=== PATIENT | female | born 1960 | race Caucasian/White ===

== ENCOUNTER 2016-10-15 15:35 | Emergency (ER) | payer MEDICAID ==
[2016-10-15] MEDS ORDERED: ALBUTEROL NEB 2.5 MG/3 ML INH STA (16:57)
[2016-10-15] MEDS ORDERED: ALBUTEROL NEB 2.5 MG/3 ML INH ONE (17:18)
[2016-10-15] MEDS ORDERED: AZITHROMYCIN 250 MG TABLET PO STA (17:39)
[2016-10-15] MEDS ORDERED: AZITHROMYCIN 250 MG TABLET PO ONE (17:42)
== END 2016-10-15 17:50 | disposition home or self-care (01) ==
DX: J18.9 Pneumonia, unspecified organism (principal); I10 Essential (primary) hypertension; E11.9 Type 2 diabetes mellitus without complications; Z79.84 Long term (current) use of oral hypoglycemic drugs
CPT/HCPCS: 71020; 94640; 94664; 99283; 99284; A9270; J7613

== ENCOUNTER 2020-08-15 02:21 | Emergency (ER) | payer OTHER ==
[2020-08-15] MEDS ORDERED: HYDROcod/ACET 5/325 Prepack 4 PO STA (03:18)
[2020-08-15] MEDS ORDERED: lisinopriL 5 MG TABLET PO STA (04:00)
[2020-08-15 04:13] VITALS: BP 207/99
--- NOTE | 2020-08-15 04:36 | ED Physician Documentation ---
History of Present Illness - Stated complaint Stated Complaint: ARM PX - Chief complaint Chief Complaint: Ext Problem - History obtained from History obtained from: Patient - History of Present Illness Timing: How many weeks ago (4) Pain level max: 6 Pain level now: 3 Improved by: rest Worsened by: movement (flexion at elbow), palpation/pressure to flexor surface of elbow - Additonal information Additional information: c/o gradual onset RUE pain x 4 weeks, initially in right hand and wrist but limited to medial aspect (4th and 5th digits, medial hand/wrist), but eventually spreading to involve FA, elbow, and right upper arm. pain is episodic and is exacerbated by palpation/pressure to the elbow (flexor aspect), and to a lesser extent with elbow flexion. denies injury (although distant/childhood RUE fracture). patient is right-hand dominant Review of Systems Constitutional: denies: Fever Musculoskeletal: reports: Extremity pain. denies: Neck pain, Back pain, Extremity swelling, Joint swelling Neurologic: reports: Numbness (mild paresthesias RUE medial aspect and 4th and 5th right fingers). denies: Focal weakness PD PAST MEDICAL HISTORY - Past Medical History Cardiovascular: Hypertension Respiratory: None Endocrine/Autoimmune: Type 2 diabetes, HyPOthyroidism GI: None POULTRYMAN: None : None HEENT: None Psych: Depression Musculoskeletal: None Derm: None - Past Surgical History Past Surgical History: Yes General: Appendectomy /POULTRYMAN: section - Present Medications Home Medications: Ambulatory Orders Medication Instructions Recorded Confirmed metFORMIN [Glucophage] 1,000 mg PO BID 10/18/15 07/26/20 Lisinopril [Prinivil] 10 mg PO DAILY 07/26/20 07/26/20 HYDROcod/ACETAM 5/325 [Throckmorton 5/325] 1 - 2 ea PO Q6H PRN #15 tablet 08/15/20 lisinopriL [Lisinopril] 10 mg PO DAILY #30 tablet 08/15/20 - Allergies Allergies/Adverse Reactions: Allergies Allergy/AdvReac Type Severity Reaction Status Date / Time codeine AdvReac Nausea Verified 08/15/20 02:38 - Social History Does the pt smoke?: No Smoking Status: Never smoker Does the pt drink ETOH?: No Does the pt have substance abuse?: No - Immunizations Immunizations are current?: No Immunizations: TDAP >10years/unknown PD ED PE NORMAL - Vitals Vital signs reviewed: Yes - General General: Alert and oriented X 3, No acute distress, Well developed/nourished - Neck Neck: No bony TTP - Cardiac Cardiac: RRR, No murmur - Respiratory Respiratory: No respiratory distress, Clear bilaterally - Derm Derm: Normal color, Warm and dry, No rash - Extremities Extremities: No deformity, Normal ROM s pain, No edema, Other (brisk capillary refill right fingers, 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 no swelling/edema RUE) - Neuro Neuro: No motor deficit, No sensory deficit (LTS intact RUE), Other (FROM RUE including wrist, elbow, shoulder (no apparent distress with ROM). Positive right Tinel's sign) Results - Vitals Vitals: Vital Signs - 24 hr 08/15/20 08/15/20 08/15/20 02:33 03:16 04:00 Temperature 36.4 C L 36.4 C L Heart Rate 90 84 Respiratory 18 16 Rate Blood Pressure 238/120 H 215/104 H 212/88 H O2 Saturation 94 98 08/15/20 04:11 Temperature 36.4 C L Heart Rate 84 Respiratory 12 Rate Blood Pressure 207/99 H O2 Saturation 98 Oxygen O2 Source Room air - Rads (name of study) chest xray Radiology: Prelim report reviewed, See rad report PD MEDICAL DECISION MAKING - ED course Complexity details: reviewed results, re-evaluated patient, considered differential, d/w patient ED course: HPI is s/o radial nerve impingement such as cubital tunnel syndrome. Pancoast tumor can have similar symptoms and thus CXR performed and is unremarkable. No evidence of emergent process that would necessitate nor benefit from further emergent testing. Patient has had inadequate relief with ibuprofen at home and thus rx for vicodin provided with dose given in ED prior to discharge. Instructed to return if worse but I stressed the importance of pursuing f/u with PMD as she might benefit from referral to specialist and outpatient testing (such as EMG). She was also noted to have high BP during ED stay and as we discussed this, she revealed that she had recently run out of her BP medication and thus given dose of lisinopril and rx for same Departure - Departure Disposition: 01 Home, Self Care Clinical Impression: Ulnar nerve impingement Qualifiers: Laterality: right Qualified Code(s): G56.21 - Lesion of ulnar nerve, right upper limb Condition: Good Instructions: Cubital Tunnel Syndrome, ED Palsy Unlar Nerve Follow-Up: Debi Hung PA-C [Primary Care Provider] - (Call Sunday to arrange for next available appointment) Prescriptions: lisinopriL [Lisinopril] 10 mg PO DAILY #30 tablet HYDROcod/ACETAM 5/325 [Throckmorton 5/325] 1 - 2 ea PO Q6H PRN #15 tablet PRN Reason: Pain Discharge Date/Time: 08/15/20 04:12
--- NOTE | 2020-08-15 08:26 | XRAY Report ---
PROCEDURE: Chest 2 View X-Ray INDICATIONS: RUE pain, right chest pain TECHNIQUE: 2 view(s) of the chest. COMPARISON: 10/15/2016 FINDINGS: Surgical changes and devices: None. Lungs and pleura: No pleural effusions or pneumothorax. Lungs are clear. Mediastinum: Mediastinal contours are normal. Heart size is normal. Bones and chest wall: No suspicious bony abnormalities. No rib abnormality is seen on this study. A ge-appropriate degenerative changes are seen. Mild dextroconvex scoliotic curvature is seen. Soft t issues appear unremarkable. IMPRESSION: No imaging explanation is found for the patient's presenting symptoms. Note: No significant discrepancy from the preliminary report. Reviewed by: Miles Goode MD on 08/15/2020 7:24 AM [facility] Approved by: Miles Goode MD on 08/15/2020 7:24 AM [facility] Station ID: [id number]
== END 2020-08-15 04:12 | disposition home or self-care (01) ==
LOC: ED 02:21
DX: G56.21 Lesion of ulnar nerve, right upper limb (principal); E11.9 Type 2 diabetes mellitus without complications; Z79.84 Long term (current) use of oral hypoglycemic drugs; I10 Essential (primary) hypertension; Z76.0 Encounter for issue of repeat prescription
CPT/HCPCS: 71046; 99283; 99284; A9270

== ENCOUNTER 2020-09-23 19:36 | Outpatient (CLI) | payer OTHER | END 2020-09-23 19:37 | disposition home or self-care (01) | LOC: COV 19:36 | PROVIDERS: ATTEND Family Medicine | DX: R06.02 Shortness of breath (principal); R53.83 Other fatigue; R07.0 Pain in throat; R09.81 Nasal congestion; J34.89 Other specified disorders of nose and nasal sinuses; R11.0 Nausea; Z20.828 Contact with and (suspected) exposure to other viral communicable diseases ==